=== PATIENT | male | born 1945 | race Caucasian/White ===

== ENCOUNTER 2020-07-21 11:52 | Day surgery (SDC) | payer MEDICARE ==
[2020-07-21] MEDS ORDERED: LACTATED RINGERS 1,000 ML IV SCH (12:17)
[2020-07-21 12:27] VITALS: TEMP 98
[2020-07-21 12:31] LABS: Glucose,Whole Blood 297 mg/dL (75-99)
--- NOTE | 2020-07-21 12:33 | P.PCN ---
Date of Procedure: 07/21/20 Description of Procedure: Pre OP diagnoses: trochanteric bursitis Postoperative diagnosis: trochanteric bursitis Procedure: Right Trochanteric bursa injection under fluoroscopy Imaging: Fluoroscopy was used, images where saved to the medical record Anesthesia: Local with 1% lidocaine Description of the procedure: Risks, benefits, and alternatives of the procedure including but not limited to risk of infection, bleeding and incomplete pain relief, possible allergic reaction to medications were discussed with the patient along with the alternatives were also discussed with the patient and they agreed to proceed to the operating room. The patient was Placed in the supine position and standard monitors applied patient. The right back and the hip area prepped with chl orhexidine 3 times, and under sterile technique a 25g 1.5" needle was used to anesthetize the skin with 5ml of 1% lidocaine. After adequete localization, a 25 g spinal needle was advanced under fluoroscopy to the trochanteric bursa under fluoroscopy and placed in the trochanteric bursa. Confirmation of the procedure was done under fluoroscopy. After negative aspiration, 5 mL of 0.5% ropivacaine along with 40mg of depomedrol was placed into the bursa. Patient tolerated the procedure well. Complications: none Follow up: Discharge material was given to the patient along with aftercare instructions. Patient will follow up as directed.
[2020-07-21] MEDS ORDERED: IOPAMIDOL M200 10 ML VIAL ONE (12:55)
[2020-07-21] MEDS ORDERED: methylPREDNISolone ACETATE 40 MG/ML 1 ML VIAL ONE (12:55)
[2020-07-21] MEDS ORDERED: ROPIVACAINE 5MG/ML 20ML VIAL ONE (12:55)
[2020-07-21 13:10] VITALS: PULSE 103; RESP 16
[2020-07-21 13:19] VITALS: BP 150/76
--- NOTE | 2020-07-21 13:42 | FL ---
Fluoroscopy HISTORY: Pain 4 seconds fluoroscopy time supplied to the referring clinician. 1 intraoperative C-arm images docume nt the procedure. See dictated report from anesthesia.
== END 2020-07-21 13:31 | disposition home or self-care (01) ==
LOC: ORPAIN 11:52
PROVIDERS: ATTEND Hospitalist
DX: M70.61 Trochanteric bursitis, right hip (principal); M16.9 Osteoarthritis of hip, unspecified; Z88.2 Allergy status to sulfonamides; Y93.9 Activity, unspecified
CPT/HCPCS: 20610; 77002; J1030; Q9966; J2795

== ENCOUNTER → 2020-09-15 | Outpatient (CLI) | payer MEDICARE ==
[2020-09-15 09:30] LABS: Basophils # (A) 0.1 k/uL (0-0.2); Basophils % (A) 2 %; Eosinophils # (A) 0.1 k/uL (0-0.7); Eosinophils % (A) 3 %; HGB 13.2 gm/dL (13.0-17.5); Lymphocytes # (A) 1.7 k/uL (1.0-4.8); Lymphocytes % (A) 34 %; MCH 28.3 pg (25.0-35.0); MCHC 32.2 g/dL (31.0-37.0); Mean Platelet Volume 7.8; Monocytes # (A) 0.4 k/uL (0-1.0); Monocytes % (A) 9 %; Neutrophils # (A) 2.5 k/uL (1.3-7.7); Neutrophils % (A) 50 %; Platelet Count 283 k/uL (150-450); RBC 4.66 m/uL (4.30-5.90); RDW 13.7 % (11.5-15.5)
[2020-09-15 15:05] LABS: Potassium 4.6 mmol/L (3.5-5.5)
== END | disposition home or self-care (01) ==
LOC: LABWHC1 08:37
PROVIDERS: ATTEND Orthopaedic Surgery
DX: M16.11 Unilateral primary osteoarthritis, right hip (principal); Z22.322 Carrier or suspected carrier of Methicillin resistant Staphylococcus aureus
CPT/HCPCS: 36415; 80051; 85025; 87070

== ENCOUNTER → 2020-09-26 | Day surgery (SDC) | payer MEDICARE ==
[2020-09-14 15:56] VITALS: BMI 25.1
--- NOTE | 2020-09-25 13:03 | HP ---
HISTORY AND PHYSICAL DATE OF SURGERY: Jose Arrington is a 75-year-old gentleman seen with symptomatic right hip osteoarthritis. We discussed options for treatment. He elected to proceed with right total hip arthroplasty. Consent was obtained. Clearance was provided by Dr. Capo Rios. PAST MEDICAL HISTORY: Hypothyroidism. PAST SURGICAL HISTORY: Left shoulder arthroscopy. MEDICATIONS: Levothyroxine, lisinopril, metformin. ALLERGIES: SULFA. SOCIAL HISTORY: He denies tobacco use. PHYSICAL EXAMINATION: Evaluation of the right hip: Limited range of motion. Diffuse tenderness. Positive hip impingement sign. Straight leg raise is negative. Distal neurovascular exam is intact. Right hip radiographs revealed osteoarthritic changes. IMPRESSION: 1. Right hip osteoarthritis. 2. Hypertension. 3. Hypothyroidism. 4. Evv-iymtxcf-hbyrkgvgu diabetes. PLAN: Direct anterior right total hip arthroplasty. MMODL / IJN: [id number] /
[~2020-09-26] MED LIST: ACETAMINOPHEN TAB 500 MG TAB PO PRN; DEXAMETHASONE SOD PHOSPHATE 4 MG/ML 1 ML VIAL IV ONE; HYDROcodone/APAP 5-325MG 1 EACH TAB PO PRN; HYDROmorphone 0.2 MG/1 ML SYRINGE IVP PRN; HYDROmorphone 0.5 MG/0.5 ML SYRINGE IVP PRN; INSULIN ASPART (NovoLOG) 100 UNIT/ML VIAL SQ ONE; LACTATED RINGERS 1,000 ML IV ONE; LIDOCAINE 1% (10MG/ML) FOR IV START INTRADERMA PRN; MELOXICAM 7.5 MG TAB PO PRN; NALOXONE 0.4 MG/ML 1 ML VIAL IV PRN; ONDANSETRON 4 MG/2 ML VIAL IVP ONE; ONDANSETRON 4 MG/2 ML VIAL IVP PRN; ONDANSETRON 4 MG/2 ML VIAL ONE; ROPIVACAINE/EPI/CLONIDINE/KET 50 ML SYRINGE MISCELLANE PRN; TRANEXAMIC ACID 1,000 MG in SODIUM CHLORIDE 0.9% 100 ML IVPB PRN
[2020-09-26] MEDS: LACTATED RINGERS 1,000 ML IV SCH ×2 (07:10→07:27)
[2020-09-26 07:13] LABS: Glucose,Whole Blood 169 mg/dL (75-99)
--- NOTE | 2020-09-26 09:06 | P.OP ---
Date of Procedure: 09/26/20 Preoperative Diagnosis: Right hip osteoarthritis Postoperative Diagnosis: Right hip osteoarthritis Procedure(s) Performed: Direct anterior right total hip arthroplasty Implants: 1. Depuy Corail KA size 11 standard collar press-fit femoral stem 2. Depuy pinnacle 58 mm press-fit acetabular shell 3. Depuy pinnacle neutral polyethylene acetabular liner 36 mm ID 58 mm OD 4. Biolox delta ceramic femoral head +1.5 36 mm Anesthesia: PAOLAA, local Surgeon: Rajeev Dawson Seed Corn Manager Production #1: Hossein Larson Estimated Blood Loss (ml): 90 Pathology: other (Femoral head) Condition: stable Disposition: PACU Indications for Procedure: 75-year-old patient seen with symptomatic right hip osteoarthritis. After treatment options were discussed, he elected to proceed with direct anterior right total hip arthroplasty. Operative Findings: see description of procedure Description of Procedure: The patient was taken to the operative suite. Patient underwent a general anesthetic by the department of anesthesia. Patient was then transferred to the [place] table. Patient was given preoperative IV antibiotics and TXA. Both lower extremities were placed in standard leg spars. The hip was then prepped and draped in the normal sterile orthopedic fashion. A standard anterior incision was made beginning 3 cm lateral and 1 cm distal to the ASIS extending 10 cm. Dissection was then carried down through the subcutaneous soft tissues down to the fascia overlying the tensor fascia ruben. An incision was now made through the fascia. Careful dissection was taken down exposing the tensor fascia ruben muscle. A Cobra retractor was now placed along the medial femoral neck and a second one along the lateral femoral neck. The venous circumflex vessels were now identified, cauterized and clipped. We identified the anterior hip capsule. An incision was made through the hip capsule along the lateral border. I performed a partial anterior capsulectomy. Retractors were now placed around the femoral neck itself. A femoral neck cut was now made with a sagittal saw. It was completed with an osteotome at the lateral neck area. The femoral head was now removed without difficulty. The extremity was now rotated to 45 of external rotation. It was locked in position. Residual labrum was now debrided out. Serial reaming was performed of the acetabulum while Celso saunders holding an anterior retractor for exposure. Once we reached the appropriate size and a trial was position and fit nicely. The appropriate size was now chosen opened and made available. It was introduced into the acetabulum without difficulty. The C-arm/fluoroscopy was now brought into the operative field. We made sure we had a true AP pelvic view. We now under direct C-arm/fluoroscopy introduced into the acetabular component with appropriate version and inclination. I held the cup in appropriate position well Celso BROWN used a mallet to seat the acetabular component. I noted the component now to be well seated and stable. Acetabular cup introduce her was removed. The C-arm was pulled back. An appropriate liner was introduced and clicked into position. It was felt to be stable. At this point retractors were removed. The extremity was now placed into 120 external rotation with no traction. The leg was now dropped to the ground and adducted. Appropriate retractors were now positioned along the proximal femur. We also placed our femoral look into position. Additional capsular releasing was performed to gain access to the proximal femur. We now used a box osteotome. A canal finder was now utilized. Serial broaching was now performed with the assistance of Celso BROWN tapping the broaches down with a mallet while held the broach in appropriate rotation and position. This was done until we reached the appropriate size with good overall rotational stability. Appropriate calcar planing was performed. A trial head/neck was placed into position. The hip was now reduced. The C- arm/fluoroscopy was brought back into the operative field. Obtain an AP pelvis which documented reasonable alignment and leg lengths positioning. The C-arm/fluoroscopy was pulled back. Retractors were repositioned and the hip was dislocated. The leg was again taken down to the ground and adducted. Appropriate retractors were repositioned as well as the femoral hook. All trial components were removed. The femoral implant was opened along with the femoral head. The femoral implant was introduced on the appropriate handle into our pre-broached area. I held the component position well Celso BROWN used a mallet to seat the femoral component. The femoral component was now noted to be well seated and stable.. The femoral head was introduced with good positioning and fixation noted. Retractors were now removed. The hip was now reduced. There appeared be good positioning of the hip confirmed on intraoperative fluoroscopy. Spot films were obtained to document this. A second gram of TXA was given. The deep and superficial soft tissues were infiltrated with local analgesic. Bipolar cautery had been utilized intermittently through the proc edure for hemostasis. The wound was irrigated copiously with pulse lavage mechanical irrigation. The fascia was repaired with Vicryl suture. The subcutaneous soft tissues were repaired in layers with Vicryl suture. The skin was approximated with pernio/Dermabond. Sterile dressings were applied. Patient was then awakened, transferred to a bed and taken to recovery in stable condition. Celso BROWN assisted with the complex procedure.
--- NOTE | 2020-09-26 09:15 | FL ---
EXAMINATION TYPE: FL guidance operating room DATE OF EXAM: 09/26/2020 HISTORY: Fluoroscopy time 13 seconds of fluoroscopy provided. IMPRESSION: 1. Fluoroscopy time.
[2020-09-26 09:24] VITALS: TEMP 97
[2020-09-26 09:41] LABS: Glucose,Whole Blood 211 mg/dL (75-99)
[2020-09-26 09:48] VITALS: RESP 16
[2020-09-26 10:39] LABS: Glucose,Whole Blood 222 mg/dL (75-99)
[2020-09-26 11:54] LABS: Glucose,Whole Blood 250 mg/dL (75-99)
[2020-09-26 13:36] VITALS: BP 106/65; PULSE 69
== END | disposition home health service (06) ==
LOC: OR 06:13
PROVIDERS: ATTEND Orthopaedic Surgery
DX: M16.11 Unilateral primary osteoarthritis, right hip (principal); I10 Essential (primary) hypertension; E11.9 Type 2 diabetes mellitus without complications; E03.9 Hypothyroidism, unspecified; Z88.2 Allergy status to sulfonamides; Z79.890 Hormone replacement therapy; Z79.84 Long term (current) use of oral hypoglycemic drugs; Z79.899 Other long term (current) drug therapy
CPT/HCPCS: 97110; 97161; 88300; 73501; 27130; C1776; J1100; J0690; J2405; 86850; 86900; 86901

== ENCOUNTER 2022-07-19 09:44 | Day surgery (SDC) | payer MEDICARE ==
[2022-07-17 13:33] VITALS: BMI 25.8
--- NOTE | 2022-07-19 03:38 | HP ---
HISTORY AND PHYSICAL DATE OF SURGERY: 07/19/2022. HISTORY OF PRESENT ILLNESS: Jose Arrington is a 77-year-old patient seen with progressive right shoulder pain. We discussed options for treatment. He elected to proceed with right shoulder arthroscopy. Consent was obtained. PAST MEDICAL HISTORY: Hypothyroidism, hypertension, lnu-bochpxn-jxtvbcoqs diabetes. PAST SURGICAL HISTORY: Shoulder arthroscopy. DAILY MEDICATIONS: 1. Levothyroxine. 2. Lisinopril. 3. Metformin. ALLERGIES: Sulfa. SOCIAL HISTORY: Denies tobacco use. PHYSICAL EVALUATION OF THE RIGHT SHOULDER: Flexion is 140 degrees, abduction is 130 degrees, external rotation is 35 degrees with pain and weakness. Tenderness along the anterior and lateral acromion, rotator cuff insertion. Impingement is positive at 90, cross-body adduction sign is positive. Drop- arm sign is positive. Distal neurovascular exam is intact. RADIOGRAPHS: Radiographs of the right shoulder reveal a type 3 acromion, severe acromioclavicular osteoarthritis and calcifications of the tuberosity. An MRI of the right shoulder revealed a large rotator cuff tear and acromioclavicular joint osteoarthritis. IMPRESSION: 1. Right shoulder impingement with rotator cuff tear. 2. Right shoulder acromioclavicular joint osteoarthritis. 3. Hypothyroidism. 4. Hypertension. 5. Fwx-nxrdzlv-jcftdardr diabetes. PLAN: Right shoulder arthroscopy with subacromial decompression, arthroscopic rotator cuff repair, Levy procedure and debridement. MMODL / IJN: [id number] /
[2022-07-19 10:28] VITALS: RESP 16
[2022-07-19] MEDS ORDERED: ONDANSETRON 4 MG/2 ML VIAL ONE (10:32)
[2022-07-19 10:51] LABS: Glucose,Whole Blood 133 mg/dL (70-110)
[2022-07-19] MEDS ORDERED: DEXAMETHASONE SOD PHOSPHATE 4 MG/ML 1 ML VIAL IVP ONE (10:55)
[2022-07-19] MEDS ORDERED: MIDAZOLAM 2 MG/2 ML VIAL IVP ONE (11:00)
[2022-07-19] MEDS ORDERED: fentaNYL (PF) 50 MCG/ML 2 ML AMP IVP ONE (11:00)
[2022-07-19] MEDS ORDERED: SUCCINYLCHOLINE CHLORIDE 200 MG/10 ML VIAL IV ONE (11:12)
[2022-07-19] MEDS ORDERED: LIDOCAINE 2% INJ 20 MG/ML (2 ML VIAL) ONE (11:12)
[2022-07-19] MEDS ORDERED: ROCURONIUM 10 MG/ML (5 ML VIAL) IV ONE (11:12)
[2022-07-19] MEDS ORDERED: GLYCOPYRROLATE 0.2 MG/ML 2 ML VIAL ONE (11:12)
[2022-07-19] MEDS ORDERED: NEOSTIGMINE 1 MG/ML 10 ML VIAL ONE (11:12)
[2022-07-19] MEDS ORDERED: ROPIVACAINE 5 MG/ML 30 ML VIAL ONE (11:12)
[2022-07-19] MEDS ORDERED: LACTATED RINGERS 1,000 ML IV ONE ×2 (11:12→12:05)
[2022-07-19] MEDS ORDERED: PROPOFOL 10 MG/ML 20 ML VIAL IV ONE (11:12)
--- NOTE | 2022-07-19 13:06 | P.OP ---
Date of Procedure: 07/19/22 Preoperative Diagnosis: Right shoulder impingement Postoperative Diagnosis: 1. Right shoulder rotator cuff tear 2. Right shoulder impingement 3. Right shoulder acromioclavicular joint osteoarthritis 4. Right shoulder partial long head biceps tendon tear Procedure(s) Performed: 1. Right shoulder arthroscopic rotator cuff repair 2. Right shoulder arthroscopic subacromial decompression 3. Right shoulder arthroscopic Levy procedure 4. Right shoulder arthroscopic biceps tenotomy Implants: 44.75 Arthrex swivel lock anchors Anesthesia: GETA, regional (Interscalene block) Surgeon: Rajeev Dawson Slag Motor Operator #1: Hossein Larson Estimated Blood Loss (ml): 12 Pathology: none sent Condition: stable Disposition: PACU Indications for Procedure: 77-year-old patient seen with progressive right shoulder pain. After treatment options were discussed, he elected to proceed with arthroscopy. Operative Findings: See description of procedure Description of Procedure: Patient underwent an interscalene block by department of anesthesia. The patient was then taken to the operative suite. The patient underwent a general anesthetic by the department of anesthesia. The patient was placed into a lateral position and secured. There was appropriate padding of the bony prominence. Right shoulder was then prepped and draped in normal sterile orthopedic fashion. We placed the extremity in 10 pounds of longitudinal traction. A posterior incision was now made for a posterior working portal site. The trocar and cannula were inserted into the glenohumeral joint. Arthroscopy was initiated. Spinal needle was now inserted anteriorly, to ascertain the anterior working portal site. An incision was now made in that area, a trocar was inserted followed by a probe. There were grade 1/2 chondromalacia changes of the glenohumeral joint. There was some partial tearing and hyperemia long head biceps tendon. The labrum appeared stable although somewhat diminutive. I performed an arthroscopic biceps tenotomy. I again probed the labrum and it was stable. Instruments removed from glenohumeral joint. Utilizing the posterior working portal site, the trocar and cannula were inserted into the subacromial space. Arthroscopy initiated. I made an incision 2 fingerbreadths lateral to the acromion. I introduced my trocar followed by my ArthroCare ablator. I now began ablating thick subacromial bursal tissue, which exposed the undersurface of the anterior acromion. There was diminished subacromial space. There was a very prominent anterior acromion. A motorized bur was introduced and a subacromial decompression was performed. I also excised some osteophytes off the inferior aspect of the distal clavicle. The AC joint was visualized and noted to be fairly arthritic. The motorized bur was introduced in the anterior portal site and a Levy procedure was performed without difficulty, decompressing the AC joint nicely. I turned my attention to the rotator cuff. There was a 3 cm rotator cuff tear. I debrided the margins getting down to stable tendon tissue. I introduced my motorized bur and abraded the footprint area, getting some petechial bleeding. I now made an accessory portal site off the lateral aspect of the acromion. I punched 2 holes medial for medial row fixation with the assistance of Celso BROWN carefully tapping the punch with a mallet as I held the punch and the camera. I now introduced both anchors into the pre-punched holes and Celso BROWN tapped them with the mallet as I held anchors and the camera. Celso BROWN now screwed the anchors in place a while I held the anchor guide and camera. All 8 limbs of suture were now passed through good bites of rotator cuff tendon. I now punched 2 holes for lateral row fixation again I held the punch and camera while Celso BROWN used a mallet to tap in the punch. We now passed sutures through both anchors and individually I introduced the anchors into the pre-punch holes I held the anchor guide in position with one hand holding the camera with the other hand while Celso BROWN tensioned the sutures and screwed in the anchors one at a time. All residual suture limbs were now clipped. We had good compression of the tendon along the entire footprint. Instruments now removed from the portal sites. All portal sites were approximated with nylon suture. Sterile dressings were applied followed by a shoulder immobilizer. Hossein BROWN assisted in this complex case. The patient was awakened, transferred to a bed, and taken to recovery in stable condition.
[2022-07-19 13:11] VITALS: TEMP 97
[2022-07-19 14:35] VITALS: BP 132/82; PULSE 60
--- NOTE | 2022-07-19 17:07 | P.ANPRN ---
Procedure Note - Anesthesia - Nerve Block Performed Right Interscalene Single Time Out Performed: Yes (1059) Date of Procedure: 07/19/22 Procedure Start Time: 11:00 Procedure Stop Time: 11:06 Location of Patient: PreOp Indication: Acute Post-Operative Pain, Requested by Surgeon Specifically requested for management of pain by DrRhea: Rajeev Dawson Sedation Type: Sedate with meaningful contact maintained Preparation: Sterile Prep Position: Supine Catheter: None Needle Types: Pajunk Needle Gauge: 21 Ultrasound used to visualize needle placement: Yes Ultrasound used to observe medication spread: Yes Injectate: 0.5% Ropivacaine (see comment for volume) (30cc) Blood Aspirated: No Pain Paresthesia on Injection Noted: No Resistance on Injection: Normal Image Stored and Saved: Yes Events: Uneventful and Well Tolerated
== END 2022-07-19 15:16 | disposition home or self-care (01) ==
LOC: OR 09:44
PROVIDERS: ATTEND Orthopaedic Surgery
DX: M19.011 Primary osteoarthritis, right shoulder (principal); G89.18 Other acute postprocedural pain; M75.41 Impingement syndrome of right shoulder; M75.111 Incomplete rotator cuff tear or rupture of right shoulder, not specified as traumatic; M25.811 Other specified joint disorders, right shoulder; E03.9 Hypothyroidism, unspecified; I10 Essential (primary) hypertension; J45.909 Unspecified asthma, uncomplicated; E11.9 Type 2 diabetes mellitus without complications; Z79.4 Long term (current) use of insulin; E07.9 Disorder of thyroid, unspecified; Z88.2 Allergy status to sulfonamides; Z79.84 Long term (current) use of oral hypoglycemic drugs
CPT/HCPCS: 29827; 29826; 29824; 29828; 64415; 76942; C1713 ×3; J2250; J0330; J1100; J2710; J0690; J2405; J3010; J2795; J2704; J2001

== ENCOUNTER 2023-09-25 12:13 | Day surgery (SDC) | payer MEDICARE ==
[2023-09-19 10:13] VITALS: BMI 27.0
[~2023-09-25 12:13] MED LIST changes: -ACETAMINOPHEN TAB 500 MG TAB PO PRN; -DEXAMETHASONE SOD PHOSPHATE 4 MG/ML 1 ML VIAL IV ONE; -HYDROcodone/APAP 5-325MG 1 EACH TAB PO PRN; -HYDROmorphone 0.2 MG/1 ML SYRINGE IVP PRN; -HYDROmorphone 0.5 MG/0.5 ML SYRINGE IVP PRN; -INSULIN ASPART (NovoLOG) 100 UNIT/ML VIAL SQ ONE; -LACTATED RINGERS 1,000 ML IV ONE; +LACTATED RINGERS 1,000 ML IV SCH; -MELOXICAM 7.5 MG TAB PO PRN; -NALOXONE 0.4 MG/ML 1 ML VIAL IV PRN; -ONDANSETRON 4 MG/2 ML VIAL IVP ONE; -ONDANSETRON 4 MG/2 ML VIAL ONE; -ROPIVACAINE/EPI/CLONIDINE/KET 50 ML SYRINGE MISCELLANE PRN; -TRANEXAMIC ACID 1,000 MG in SODIUM CHLORIDE 0.9% 100 ML IVPB PRN; +fentaNYL (PF) 50 MCG/ML 2 ML AMP IV PRN
[2023-09-25] MEDS ORDERED: LACTATED RINGERS 1,000 ML IV ONE (12:51)
[2023-09-25 12:56] LABS: Glucose,Whole Blood 235 mg/dL (70-110)
[2023-09-25] MEDS ORDERED: PROPOFOL 10 MG/ML 20 ML VIAL IV ONE (13:10)
[2023-09-25] MEDS ORDERED: LIDOCAINE 1% INJ 10MG/ML (20 ML MDV) ONE (13:10)
[2023-09-25] MEDS ORDERED: LIDOCAINE 1% INJ 10MG/ML (5 ML VIAL-PF) IM ONE ×2 (13:13→13:22)
[2023-09-25 13:18] VITALS: TEMP 97.8
[2023-09-25 14:06] VITALS: PULSE 91
[2023-09-25 14:07] LABS: Anisocytosis Slight; HCT 27.9 % (39.0-53.0); HGB 8.7 gm/dL (13.0-17.5); Hypochromasia Marked; MCH 27.8 pg (25.0-35.0); MCHC 31.3 g/dL (31.0-37.0); MCV 88.6 fL (80.0-100.0); Platelet Count 104 k/uL (150-450); Poikilocytosis Marked; RBC 3.15 m/uL (4.30-5.90); RDW 18.2 % (11.5-15.5); Reticulocyte % 3.2 % (0.5-2.0); WBC 2.1 k/uL (3.8-10.6)
[2023-09-25 14:30] VITALS: BP 104/62; RESP 18
[2023-09-25 14:33] LABS: Band Neutrophils % 1 %; Lymphocytes # (M) 1.39 k/uL (1.0-4.8); Monocytes # (M) 0.08 k/uL (0-1.0); Neutrophils % (M) 29 %; Nucleated Red Blood Cells 1 /100 WBC (0-0); Total Cells Counted 100
[2023-09-25 14:35] LABS: Polychromasia Present
--- NOTE | 2023-09-25 20:46 | OP ---
OPERATIVE REPORT DATE OF SERVICE : PROCEDURE PERFORMED: Bone marrow biopsy with general and local sedation. DESCRIPTION OF PROCEDURE: After positioning Mr. Arrington in the left lateral decubitus position, general anesthesia was administered. The posterior superior iliac spine was then palpated along with the posterior superior iliac crest. 10 mL of 1% lidocaine was applied to the periosteum. A 0.3 cm incision into the skin and subcutaneous tissue was made. A 4-inch Jamshidi needle was then advanced through the periosteum into the bone marrow with 17 mL of aspirate obtained along with a 0.3 cm core sample being obtained. Two additional small fragments of core samples were obtained. Studies will be sent for flow cytometry, cytogenetics, FISH, and NGS. Mr. Arrington tolerated the procedure with less than 1 mL of blood loss with pressure bandage being applied. He will return to postop area for additional monitoring. We will send specimens for testing and followup in the clinic. MMODL / IJN: [id number] /
== END 2023-09-25 14:57 | disposition home or self-care (01) ==
LOC: OR 12:13
PROVIDERS: ATTEND Internal Medicine
DX: D61.818 Other pancytopenia (principal); D64.9 Anemia, unspecified
CPT/HCPCS: 85025; 85045; 38222; J2001 ×2; J2704

== ENCOUNTER 2024-03-19 06:11 | Day surgery (SDC) | payer MEDICARE ==
[~2024-03-19 06:11] MED LIST changes: -LACTATED RINGERS 1,000 ML IV SCH; -ONDANSETRON 4 MG/2 ML VIAL IVP PRN; -fentaNYL (PF) 50 MCG/ML 2 ML AMP IV PRN
[2024-03-19] MEDS: IV FLUID CONTINUATION 1,000 ML IV ONE ×2 (06:57→07:00)
[2024-03-19] MEDS: LACTATED RINGERS 1,000 ML IV SCH (06:57)
[2024-03-19] MEDS ORDERED: PROPOFOL 10 MG/ML 20 ML VIAL IV ONE (07:00)
[2024-03-19 07:01] LABS: Glucose,Whole Blood 179 mg/dL (70-110)
[2024-03-19 07:07] VITALS: TEMP 97.9
[2024-03-19 07:29] VITALS: RESP 18
[2024-03-19 07:40] VITALS: BP 132/77; PULSE 76
--- NOTE | 2024-03-19 07:55 | OP ---
OPERATIVE REPORT DATE OF SERVICE : PREOPERATIVE DIAGNOSIS: Myelodysplastic syndrome with excess blasts 2. POSTOPERATIVE DIAGNOSIS: Myelodysplastic syndrome with excess blasts 2. PROCEDURE PERFORMED: Bone marrow biopsy with general and local sedation. DESCRIPTION OF PROCEDURE: After being placed in the left lateral decubitus position, Mr. Arrington was given general anesthesia. The right posterior iliac spine was palpated followed by palpation of the right posterior iliac crest. This area was sterilized with three swabs of Betadine and three swabs of alcohol following administration of 1% lidocaine, 10 mL to the periosteum. A 0.3 cm incision in the subcutaneous tissue was made followed by advancement of 4-inch Jamshidi needle through the periosteum and into the bone marrow. Approximately 18 mL of aspirate along with 1-inch core sample was obtained. Mr. Arrington tolerated the procedure without complications at less than 1 mL of blood loss. He was sent back to the postoperative area in stable condition. Samples will be sent for morphology, flow cytometry, FISH, cytogenetics, and NGS. We will follow up on the results of biopsy in clinic. MMODL / IJN: [id number] /
[2024-03-19 09:04] LABS: Anisocytosis Slight; Basophils % (A) 0 %; Eosinophils % (A) 1 %; HCT 40.4 % (39.0-53.0); HGB 13.2 gm/dL (13.0-17.5); Lymphocytes # (A) 1.2 k/uL (1.0-4.8); Lymphocytes % (A) 56 %; MCH 29.6 pg (25.0-35.0); MCHC 32.5 g/dL (31.0-37.0); MCV 91.1 fL (80.0-100.0); Mean Platelet Volume 9.1; Monocytes # (A) 0.1 k/uL (0-1.0); Monocytes % (A) 4 %; Neutrophils # (A) 0.8 k/uL (1.3-7.7); Neutrophils % (A) 38 %; RBC 4.44 m/uL (4.30-5.90); RDW 16.8 % (11.5-15.5); WBC 2.1 k/uL (3.8-10.6)
[2024-03-19 09:05] LABS: Reticulocyte % 1.3 % (0.5-2.0)
[2024-03-19 09:55] LABS: Platelet Count 63 k/uL (150-450)
== END 2024-03-19 07:55 | disposition home or self-care (01) ==
LOC: OR 06:11
PROVIDERS: ATTEND Internal Medicine
DX: D46.9 Myelodysplastic syndrome, unspecified (principal)
CPT/HCPCS: 85025; 85045; 38222; J2704